=== PATIENT | male | born 1945 | race Caucasian/White ===

== ENCOUNTER 2021-12-14 07:53 | Day surgery (SDC) | payer MEDICARE, OTHER ==
[~2021-12-14] VITALS: Ht 182.9 cm; Wt 86.3 kg
[~2021-12-14 07:53] MED LIST: ASPI81EC PO; AZAT50 PO; MELO7.5 PO; MULVITMINF PO; OLME20 PO; OLME40 PO; THYR60 PO
[2021-12-14] MEDS ORDERED: LEVOTHYROXINE50 MC7 PO (08:23)
== END 2021-12-14 10:26 | disposition home or self-care (01) ==
LOC: ORSCSDS 07:53
PROVIDERS: Internal Medicine Gastroenterology
PROC: 0DBN8ZX Excision of Sigmoid Colon, Via Natural or Artificial Opening Endoscopic, Diagnostic (ICD-10-PCS; principal; 2021-12-14 09:00)
PROC: 0D5H8ZZ Destruction of Cecum, Via Natural or Artificial Opening Endoscopic (ICD-10-PCS; principal; 2021-12-14 09:00)
PROC: 0DBM8ZX Excision of Descending Colon, Via Natural or Artificial Opening Endoscopic, Diagnostic (ICD-10-PCS; principal; 2021-12-14 09:00)
PROC: 0DBL8ZX Excision of Transverse Colon, Via Natural or Artificial Opening Endoscopic, Diagnostic (ICD-10-PCS; principal; 2021-12-14 09:00)
PROC: 0DBP8ZX Excision of Rectum, Via Natural or Artificial Opening Endoscopic, Diagnostic (ICD-10-PCS; principal; 2021-12-14 09:00)
PROC: 0DBH8ZX Excision of Cecum, Via Natural or Artificial Opening Endoscopic, Diagnostic (ICD-10-PCS; principal; 2021-12-14 09:00)
DX: K50.90 Crohn's disease, unspecified, without complications (principal); K52.9 Noninfective gastroenteritis and colitis, unspecified; K63.5 Polyp of colon; K63.89 Other specified diseases of intestine; K55.20 Angiodysplasia of colon without hemorrhage; K64.8 Other hemorrhoids; I10 Essential (primary) hypertension; E03.9 Hypothyroidism, unspecified; M45.9 Ankylosing spondylitis of unspecified sites in spine; E06.3 Autoimmune thyroiditis; Z87.891 Personal history of nicotine dependence; Z79.899 Other long term (current) drug therapy
CPT/HCPCS: 88305; J2704; J7120

== ENCOUNTER → 2022-01-11 | Outpatient (CLI) | payer MEDICARE, OTHER ==
[~2022-01-11] MED LIST changes: +LEVOTHYROXINE50 MC7 PO
== END ==
LOC: PLD 13:51 → LAB SHORT 13:51
DX: D48.5 Neoplasm of uncertain behavior of skin (principal)
CPT/HCPCS: 88312

== ENCOUNTER → 2023-03-01 | Outpatient (CLI) | payer MEDICARE, OTHER | LOC: LAB 11:38 → LAB SHORT 11:38 | DX: L03.031 Cellulitis of right toe (principal); R73.01 Impaired fasting glucose | CPT/HCPCS: 87070; 87075; 87205 ==

== ENCOUNTER → 2023-09-11 | Outpatient (CLI) | payer MEDICARE, OTHER | LOC: LAB SHORT 11:10 → LAB 11:10 | DX: L97.513 Non-pressure chronic ulcer of other part of right foot with necrosis of muscle (principal); M79.89 Other specified soft tissue disorders; M86.9 Osteomyelitis, unspecified | CPT/HCPCS: 88305; 88311 ==

== ENCOUNTER 2024-08-20 10:31 | Day surgery (SDC) | payer MEDICARE, OTHER ==
[~2024-08-20] VITALS: Ht 182.9 cm; Wt 83.5 kg
[~2024-08-20 10:31] MED LIST changes: +Atropine Sulfate 0.1 MG/ML 10ML SYR ONE; +Glycopyrrolate 0.2 MG/ML 1MLVIAL ONE; +Lactated Ringer's 1,000 ML IV ONE; +Lidocaine 2% 5 ML SDV ONE; +Lidocaine HCl/Pf 1% 5 ML VIAL ONE; +Methylene Blue 1% 100 MG/10 ML VIAL ONE; +Ondansetron HCl 2 MG / ML 2ML Vial ONE; +ePHEDrine Sulfate 50 MG/ML 1ML Injection ONE; +propofoL 40 ML IV ONE
[2024-08-20] MEDS ORDERED: Lactated Ringer's 1,000 ML IV ONE (10:57)
--- NOTE | 2024-08-20 12:57 | NUR ---
08/20/24 1257 [facility] PT CARE TRANFERED TO [facility] AT 1254. END NOTE
[2024-08-20 13:45] VITALS: BP 129/57
== END 2024-08-20 13:47 | disposition home or self-care (01) ==
LOC: ORSCSDS 10:31
PROVIDERS: Internal Medicine Gastroenterology
PROC: 0DBM8ZX Excision of Descending Colon, Via Natural or Artificial Opening Endoscopic, Diagnostic (ICD-10-PCS; principal; 2024-08-20 12:00)
PROC: 0DBK8ZX Excision of Ascending Colon, Via Natural or Artificial Opening Endoscopic, Diagnostic (ICD-10-PCS; principal; 2024-08-20 12:00)
PROC: 0DBL8ZX Excision of Transverse Colon, Via Natural or Artificial Opening Endoscopic, Diagnostic (ICD-10-PCS; principal; 2024-08-20 12:00)
PROC: 0DBH8ZX Excision of Cecum, Via Natural or Artificial Opening Endoscopic, Diagnostic (ICD-10-PCS; principal; 2024-08-20 12:00)
PROC: 0DBN8ZX Excision of Sigmoid Colon, Via Natural or Artificial Opening Endoscopic, Diagnostic (ICD-10-PCS; principal; 2024-08-20 12:00)
PROC: 0DBP8ZX Excision of Rectum, Via Natural or Artificial Opening Endoscopic, Diagnostic (ICD-10-PCS; principal; 2024-08-20 12:00)
DX: K50.90 Crohn's disease, unspecified, without complications (principal); K63.89 Other specified diseases of intestine; D12.3 Benign neoplasm of transverse colon; K63.5 Polyp of colon; D12.8 Benign neoplasm of rectum; K62.1 Rectal polyp; K57.30 Diverticulosis of large intestine without perforation or abscess without bleeding; K64.8 Other hemorrhoids; I10 Essential (primary) hypertension; E78.5 Hyperlipidemia, unspecified; E03.9 Hypothyroidism, unspecified; E06.3 Autoimmune thyroiditis; Z87.891 Personal history of nicotine dependence; M45.9 Ankylosing spondylitis of unspecified sites in spine; Z79.899 Other long term (current) drug therapy
CPT/HCPCS: 88305; J0461; J2003; J2405; J2704; J7120; Q9968